=== PATIENT | female | born 1995 | race Caucasian/White ===

== ENCOUNTER 2017-03-04 21:14 | Emergency (ER) | payer SELFPAY ==
[~2017-03-04] VITALS: Ht 162.6 cm; Wt 60.0 kg
[2017-03-04 21:16] VITALS: PULSE 132; RESP 24; O2SAT 96
[2017-03-04] MEDS ORDERED: SODIUM CHLOR 0.9% 1000 ML INJ 1,000 ML IV ONE (21:32)
[2017-03-04 21:39] VITALS: RESP 16; O2SAT 98
[2017-03-04] MEDS ORDERED: ACETAMINOPHEN 325 MG TAB PO ONE (21:45)
[2017-03-04] MEDS ORDERED: SODIUM CHLORIDE 0.9% FLUSH 10 ML FLUSH IVF PRN (21:45)
[2017-03-04] MEDS ORDERED: PROCHLORPERAZINE INJ 10 MG/2 ML VIAL IVP ONE (21:45)
[2017-03-04] MEDS ORDERED: diphenhydrAMINE HCL 50 MG/ML VIAL IVP ONE (21:45)
[2017-03-04] MEDS ORDERED: PROM25TA10 PO (23:13)
--- NOTE | 2017-03-04 23:14 | PD ---
HPI Chief Complaint: Headache Time Seen by Provider: 21:28 Travel History International Travel<30 days: No Contact w/Intl Traveler<30days: No Traveled to known affect area: No History of Present Illness HPI 21 yo female complains of headache located the vertex of scalp and in the region of the occipital scalp. Duration about 1 day. She suffers with headaches sometimes on a daily basis and usually at least monthly. Today's headache is within the normal range for her in terms of severity and location all the patient states the presentations can be very variable. No fever or vomiting. Onset occurred while the patient was at rest. PFSH Past Medical History Medical History: Denies Significant Hx Diminished Hearing: No Tetanus Vaccination: Unknown Influenza Vaccination: No ?: Not Past Surgical History Surgical History: No Previous Surgery Social History Alcohol Use: No Tobacco Use: No Substance Use: No Allergies-Medications (Allergen,Severity, Reaction): Coded Allergies: No Known Allergies (Unverified , 03/04/17) Reported Meds & Prescriptions Reported Meds & Active Scripts Active Phenergan (Promethazine HCl) 25 Mg Tablet 25 Mg PO Q6H PRN Review of Systems Except as stated in HPI: all other systems reviewed are Neg General / Constitutional: No: Fever Physical Exam Narrative GENERAL: 21-year-old female well-nourished well-developed moderate distress secondary to pain The patient is [place]-speaking. Some translation provided by the undersigned. The patient was offered translation services however refused, preferring and in person bilingual machine clothing man who is also staff. SKIN: Focused skin assessment warm/dry. HEAD: Atraumatic. Normocephalic. EYES: Pupils equal and round. No scleral icterus. No injection or drainage. ENT: No nasal bleeding or discharge. Mucous membranes pink and moist. NECK: Trachea midline. No JVD. CARDIOVASCULAR: Regular rate and rhythm. No murmur appreciated. RESPIRATORY: No accessory muscle use. Clear to auscultation. Breath sounds equal bilaterally. GASTROINTESTINAL: Abdomen soft, non-tender, nondistended. Hepatic and splenic margins not palpable. MUSCULOSKELETAL: No obvious deformities. No clubbing. No cyanosis. No edema. NEUROLOGICAL and O 3. Cranial nerves III through XII are normal. The patient was on extremities. Speech memory mentation normal. PSYCHIATRIC: Appropriate mood and affect; insight and judgment normal. Data Data Last Documented VS Vital Signs Date Time Temp Pulse Resp B/P (MAP) Pulse Ox O2 Delivery O2 Flow Rate FiO2 03/04/17 23:16 98.7 92 16 117/75 (89) 99 03/04/17 21:39 Room Air Orders Orders Ecg Monitoring (03/04/17 21:32) Iv Access Insert/Monitor (03/04/17 21:32) Oximetry (03/04/17 21:32) Sodium Chloride 0.9% Flush (Ns Flush) (03/04/17 21:45) Acetaminophen (Tylenol) (03/04/17 21:45) Prochlorperazine Inj (Compazine Inj) (03/04/17 21:45) Diphenhydramine Inj (Benadryl Inj) (03/04/17 21:45) Sodium Chlor 0.9% 1000 Ml Inj (Ns 1000 M (03/04/17 21:32) MDM Medical Decision Making Medical Screen Exam Complete: Yes Emergency Medical Condition: Yes Medical Record Reviewed: Yes Differential Diagnosis Migraine, tension headache, cluster headache Narrative Course Compazine, Benadryl saline and Tylenol given. Patient reassessed and reports near complete resolution of pain. Since the patient suffers with headaches every day at times and at least once monthly and because today's headache is within the normal range for her discharge home without doing a lumbar puncture or further evaluation is considered reasonable. Follow-up up plans discussed the patient who is agreeable with the plans. Diagnosis Primary Impression: Headache Qualified Codes: R51 - Headache Referrals: [facility] call for appointment Med/Other Pt SpecificInfo: Prescription(s) given Scripts Promethazine (Phenergan) 25 Mg Tablet 25 MG PO Q6H Y for HEADACHE, #15 TAB 0 Refills Prov: Gary Romero MD 03/04/17 Disposition: DISCHARGE HOME Condition: Stable Gary Romero MD Mar 04, 2017 23:14
[2017-03-04 23:16] VITALS: BP 117/75; PULSE 92; RESP 16; TEMP 98.7; O2SAT 99
== END 2017-03-05 00:32 | disposition home or self-care (01) ==
LOC: EDBD 21:14 → NEPC 21:14
DX: R51 Headache (principal)
CPT/HCPCS: 96374; 96375; 99284; J0780; J1200; J7030